=== PATIENT | female | born 1950 | race Caucasian/White ===

== ENCOUNTER 2017-11-11 06:08 | Outpatient (CLI) | payer MEDICARE, OTHER ==
[~2017-11-11] VITALS: Ht 162.6 cm; Wt 113.4 kg
[~2017-11-11 06:08] MED LIST: ASPI-999 PO; ATOR10TA PO; LEVO150T6 PO
[2017-11-11] MEDS ORDERED: ATOR20TA66 PO (15:51)
== END 2017-11-11 16:20 ==
LOC: PREOP 06:08
PROVIDERS: ATTEND Surgery
DX: Z01.818 Encounter for other preprocedural examination (principal); Z12.11 Encounter for screening for malignant neoplasm of colon

== ENCOUNTER 2017-11-17 11:11 | Day surgery (SDC) | payer MEDICARE, OTHER ==
[~2017-11-17] VITALS: Ht 162.6 cm; Wt 113.4 kg
[~2017-11-17 11:11] MED LIST changes: +ATOR20TA66 PO
--- OUTSIDE RECORDS SUMMARY | 2017-11-17 11:14 | XMS REPORT | Continuity of Care Document ---
Author Author [facility] Organization [facility] Address Unknown Phone Unavailable Allergies Active Description Code Type Severity Reaction Onset Reported/Identified Relationship to Patient Clinical Status Yes No Known Drug Allergies [id number] Drug Allergy Unknown N/A 11/29/2015 Medications There is no data. Problems Date Dx Coded Attending Type Code Diagnosis Diagnosed By 11/21/2015 JO-ANN MARTÍNEZ MD Ot E03.9 11/21/2015 JO-ANN MARTÍNEZ MD Ot E78.2 11/21/2015 JO-ANN MARTÍNEZ MD Ot I10 11/21/2015 JO-ANN MARTÍNEZ MD Ot R06.02 11/21/2015 JO-ANN MARTÍNEZ MD Ot R07.89 11/23/2015 JO-ANN MARTÍNEZ MD Ot E03.9 11/23/2015 JO-ANN MARTÍNEZ MD Ot E78.2 11/23/2015 JO-ANN MARTÍNEZ MD Ot I10 11/23/2015 JO-ANN MARTÍNEZ MD Ot R06.02 11/23/2015 JO-ANN MARTÍNEZ MD Ot R07.89 11/29/2015 JO-ANN MARTÍNEZ MD Ot E03.9 11/29/2015 JO-ANN MARTÍNEZ MD Ot E78.2 11/29/2015 JO-ANN MARTÍNEZ MD Ot I10 11/29/2015 JO-ANN MARTÍNEZ MD Ot R06.02 11/29/2015 JO-ANN MARTÍNEZ MD Ot R07.89 11/29/2015 JO-ANN MARTÍNEZ MD Ot E03.9 11/29/2015 JO-ANN MARTÍNEZ MD Ot E78.2 11/29/2015 JO-ANN MARTÍNEZ MD Ot I10 11/29/2015 JO-ANN MARTÍNEZ MD Ot R06.02 11/29/2015 JO-ANN MARTÍNEZ MD Ot R07.89 11/30/2015 JO-ANN MARTÍNEZ MD Ot E03.9 11/30/2015 JO-ANN MARTÍNEZ MD Ot E78.2 11/30/2015 JO-ANN MARTÍNEZ MD Ot I10 11/30/2015 JO-ANN MARTÍNEZ MD Ot R06.02 11/30/2015 JO-ANN MARTÍNEZ MD Ot R07.89 11/30/2015 JO-ANN MARTÍNEZ MD Ot E03.9 11/30/2015 JO-ANN MARTÍNEZ MD Ot E78.2 11/30/2015 JO-ANN MARTÍNEZ MD Ot I10 11/30/2015 JO-ANN MARTÍNEZ MD Ot R06.02 11/30/2015 JO-ANN MARTÍNEZ MD Ot R07.89 12/04/2015 JO-ANN MARTÍNEZ MD Ot E03.9 HYPOTHYROIDISM, UNSPECIFIED 12/04/2015 JO-ANN MARTÍNEZ MD Ot E78.2 MIXED HYPERLIPIDEMIA 12/04/2015 JO-ANN MARTÍNEZ MD Ot I10 ESSENTIAL (PRIMARY) HYPERTENSION 12/04/2015 JO-ANN MARTÍNEZ MD Ot R06.02 SHORTNESS OF BREATH 12/04/2015 JO-ANN MARTÍNEZ MD Ot R07.89 OTHER CHEST PAIN 12/06/2015 JO-ANN MARTÍNEZ MD Ot E03.9 HYPOTHYROIDISM, UNSPECIFIED 12/06/2015 JO-ANN MARTÍNEZ MD Ot E78.5 HYPERLIPIDEMIA, UNSPECIFIED 12/06/2015 JO-ANN MARTÍNEZ MD Ot I10 ESSENTIAL (PRIMARY) HYPERTENSION 12/06/2015 JO-ANN MARTÍNEZ MD Ot I25.10 ATHSCL HEART DISEASE OF [place] CORONARY 12/06/2015 JO-ANN MARTÍNEZ MD Ot R06.02 SHORTNESS OF BREATH 12/06/2015 JO-ANN MARTÍNEZ MD Ot R07.9 CHEST PAIN, UNSPECIFIED 12/06/2015 JO-ANN MARTÍNZE MD Ot R94.39 ABNORMAL RESULT OF OTHER CARDIOVASCULAR 12/06/2015 JO-ANN MARTÍNEZ MD Ot Z79.899 OTHER DETENTION (CURRENT) DRUG THERAPY 12/06/2015 JO-ANN MARTÍNEZ MD Ot Z82.49 FAMILY HX OF I[place]HE[place] HEART DIS AND OTH DI 12/15/2015 JO-ANN MARTÍNEZ MD Ot E03.9 HYPOTHYROIDISM, UNSPECIFIED 12/15/2015 JO-ANN MARTÍNEZ MD Ot E78.2 MIXED HYPERLIPIDEMIA 12/15/2015 JO-ANN MARTÍNEZ MD Ot I10 ESSENTIAL (PRIMARY) HYPERTENSION 12/15/2015 JO-ANN MARTÍNEZ MD Ot R06.02 SHORTNESS OF BREATH 12/15/2015 JO-ANN MARTÍNEZ MD Ot R07.89 OTHER CHEST PAIN 12/20/2015 JO-ANN MARTÍNEZ MD Ot E03.9 HYPOTHYROIDISM, UNSPECIFIED 12/20/2015 JO-ANN MARTÍNEZ MD Ot E78.2 MIXED HYPERLIPIDEMIA 12/20/2015 JO-ANN MARTÍNEZ MD Ot I10 ESSENTIAL (PRIMARY) HYPERTENSION 12/20/2015 JO-ANN MARTÍNEZ MD Ot R06.02 SHORTNESS OF BREATH 12/20/2015 JO-ANN MARTÍNEZ MD Ot R07.89 OTHER CHEST PAIN Procedures There is no data. Results There is no data. Encounters ACCT No. Visit Date/Time Discharge Status Pt. Type Provider Facility Loc./Unit Complaint [id number] 11/11/2017 06:08:00 11/11/2017 23:59:59 CLS Outpatient CONSTANTINE BANDA MD [facility] PREOP COLONOSCOPY [id number] 12/06/2015 11:18:00 12/06/2015 19:50:00 DIS Outpatient JO-ANN MARTÍNEZ MD [facility] CATH [id number] 11/29/2015 11:43:00 11/29/2015 23:59:59 CLS Outpatient JO-ANN MARTÍNEZ MD [facility] CARD [id number] 11/20/2015 13:36:00 11/20/2015 23:59:59 CLS Outpatient JO-ANN MARTÍNEZ MD [facility] CARD
[2017-11-17] MEDS ORDERED: NS IV 500 ML 500 ML IV PRN (12:05)
[2017-11-17] MEDS ORDERED: NS IV 500 ML 500 ML ONE (12:11)
[2017-11-17 12:25] VITALS: BP 172/99
[2017-11-17] MEDS ORDERED: fentaNYL INJECTION 100 MCG/2 ML AMP ONE (13:32)
[2017-11-17] MEDS ORDERED: MIDAZOLAM 2 MG/2 ML (VERSED) VIAL ONE ×3 (13:32)
[2017-11-17] MEDS: fentaNYL INJECTION 100 MCG/2 ML AMP IVP PRN ×2 (13:43→13:53)
[2017-11-17] MEDS: MIDAZOLAM 2 MG/2 ML (VERSED) VIAL IVP PRN ×3 (13:45→13:55)
--- NOTE | 2017-11-17 13:50 | History & Physicial ---
History of Present Illness History of Present Illness Reason for visit/HPI to undergo screening colonoscopy. Denies any 11 family history. Date of Admission 11/17/17 Date Seen by Provider: Nov 17, 2017 Time Seen by Provider: 12:20 I consulted on this patient on 11/17/17 13:48 Attending Physician Constantine Banda MD Admitting Physician Nicik Gaming MD Consult Allergies and Home Medications Allergies Coded Allergies: No Known Drug Allergies (Unverified , 11/11/17) Home Medications Aspirin 81 Mg Tab.chew, 81 MG PO DAILY, (Reported) Atorvastatin Calcium 20 Mg Tablet, 20 MG PO DAILY, (Reported) Levothyroxine Sodium 150 Mcg Tablet, 150 MCG PO DAILY, (Reported) Patient Home Medication List Home Medication List Reviewed: Yes Past Oooeokc-Tcajgu-Lmapbi Hx Patient Social History Marrital Status: Employed/Student: retired Alcohol Use: Occasionally Uses Recreational Drug Use: No Smoking Status: Former Smoker Former Smoker, Quit: Nov 11, 1997 Recent Foreign Travel: No Contact w/other who traveled: No Recent Hopitalizations: No Recent Infectious Disease Expo: No Immunizations Up To Date Tetanus Booster (TDap): Unknown Pediatric: No Seasonal Allergies Seasonal Allergies: No Surgeries Yes Gallbladder, Hysterectomy Respiratory No Cardiovascular Yes High Cholesterol Neurological No Reproductive System Hx Reproductive Disorders: No Sexually Transmitted Disease: No HIV/AIDS: No VISITOR SERVICES INFORMATION ASSISTANT History: Hysterectomy Gastrointestinal No Musculoskeletal Yes Endocrine History of Endocrine Disorders: Yes Endocrine Disorders: Hypothyroidsim HEENT Loss of Vision: Bilateral Hearing Impairment: Denies Blood Transfusions Adverse Reaction to a Blood Tr: No Constitutional: no symptoms reported EENTM: no symptoms reported Respiratory: no symptoms reported Cardiovascular: no symptoms reported Gastrointestinal: no symptoms reported Genitourinary: no symptoms reported Musculoskeletal: no symptoms reported Skin: no symptoms reported Psychiatric/Neurological: No Symptoms Reported Physical Exam Vital Signs Vital Signs - First Documented 11/17/17 12:25 Temp 98.6 Pulse 75 Resp 18 B/P (MAP) 172/99 (123) Pulse Ox 95 O2 Delivery Room Air Capillary Refill : General Appearance: No Apparent Distress Neck: Normal Inspection Respiratory: Lungs Clear Cardiovascular: Regular Rate, Rhythm Gastrointestinal: Non Tender, Soft Rectal: Deferred Back: Normal Inspection Extremity: Normal Inspection Neurologic/Psychiatric: Oriented x3 Skin: Warm/Dry Assessment/Plan Assessment and Plan lady here to undergo screening colonoscopy. Discussed in detail. Problems: Admission Diagnosis Admission Status: Other (Outpt Proc) CONSTANTINE BANDA MD Nov 17, 2017 1:50 pm
--- NOTE | 2017-11-17 13:51 | Conscious Sedation/ASA ---
Conscious Sedation Pre-Proced Time Reviewed: 13:51 ASA Class: 2 Airway Mallampati Classification: (north fork appropriate class) I. II. III, IV Lungs Heart ASA score ASA 1: a normal healthy patient ASA 2: a patient with a mild systemic disease (mid diabetes, controlled hypertension, obesity ASA 3: a patient with a severe systemic disease that limits activity (angina , COPD, prior Myocardial infarction) ASA 4: a patient with an incapacitating disease that is a constant threat to life (CHF, renal failure) ASA 5: a moribund patient not expected to survive 24 hrs. (ruptured aneurysm) ASA 6: a declared brain patient whose organs are being harvested. For emergent operations, add the letter E after the classification Grade 1 Sedation Plan: Discussed options with patient/fam Note The patient is an appropriate candidate to undergo the planned procedure, sedation, and anesthesia. The patient immediately re-assessed prior to indication. CONSTANTINE BANDA MD Nov 17, 2017 1:51 pm
--- NOTE | 2017-11-17 14:10 | Endo Procedure Record ---
Endo Procedure Report Date of Procedure Last Colonoscopy: No Nov 17, 2017 Surgeon (s) CONSTANTINE BANDA MD Post Procedure/Op Diagnosis Sigmoid diverticulosis Procedure Performed Colonoscopy to cecum Description of Procedure Anesthesia Type: Conscious Sedation Specimen(s) collected/removed none Description of the Procedure Indication for the procedure: This lady came in for screening colonoscopy. She denied any family history of colon cancer or polyps. Informed consent was obtained after reviewing the procedure in detail. Description of the procedure: She was placed in left lateral decubitus position and her vital signs were monitored. Conscious sedation was achieved using Versed and fentanyl. Digital rectal examination was unremarkable. The colonoscope was then introduced in the rectum and advanced all the way up to the cecum. The scope was then withdrawn slowly and the mucosa examined in a systematic fashion. Finding: Quite severe sigmoid diverticulosis very minimal inflammation. No polyps were found She tolerated the procedure well and was taken back to the nursing area in a stable condition. Impression: Screening colonoscopy. No polyps. Incidental, severe sigmoid diverticulosis. CONSTANTINE BANDA MD Nov 17, 2017 2:09 pm
--- NOTE | 2017-11-17 14:11 | Discharge Inst-Simple/Standard ---
Discharge Inst-Standard Discharge Medications New, Converted or Re-Newed RX: Other Patient Instructions/Follow Up Plan of Care/Instructions/FU: High fiber diet information Activity as Tolerated: Yes Discharge Diet: No Restrictions CONSTANTINE BANDA MD Nov 17, 2017 2:11 pm
[2017-11-17 14:15] VITALS: BP 137/83
[2017-11-17 14:45] VITALS: BP 138/69
== END 2017-11-17 15:10 | disposition home or self-care (01) ==
LOC: ENDO 11:11
PROVIDERS: ATTEND Surgery
DX: Z12.11 Encounter for screening for malignant neoplasm of colon (principal); K57.30 Diverticulosis of large intestine without perforation or abscess without bleeding; E78.00 Pure hypercholesterolemia, unspecified; Z87.891 Personal history of nicotine dependence

== ENCOUNTER → 2020-09-21 | Outpatient (CLI) | payer MEDICARE, OTHER | LOC: CARD 10:45 | PROVIDERS: ATTEND Physician Assistant | DX: I10 Essential (primary) hypertension (principal); I35.0 Nonrheumatic aortic (valve) stenosis | CPT/HCPCS: 93306 ==

== ENCOUNTER → 2020-10-02 | Outpatient (CLI) | payer MEDICARE, OTHER ==
[~2020-10-02] VITALS: Ht 160 cm; Wt 100.0 kg
[~2020-10-02] MED LIST changes: +REGADENOSON 0.4 MG/5 ML SYR (LEXISCAN) IV ONE
[2020-10-02] MEDS: CATHETER FLUSH 10 ML SYR IV PRN ×2 (07:39→09:04)
[2020-10-02 09:03] VITALS: BP 118/72
--- NOTE | 2020-10-04 10:59 | Cardiology Stress Test Report ---
Stress Test Report Date of Procedure/Referring: Date of Procedure: Oct 02, 2020 Nina Albrecht Admitting Physician Nicki Gaming MD Indications: Hypertension Baseline Heart Rate: 74 Baseline Blood Pressure: Blood Pressure Systolic: 118 Blood Pressure Diastolic: 72 Baseline Vitals Vital Signs Date Time Temp Pulse Resp B/P (MAP) Pulse Ox O2 Delivery O2 Flow Rate FiO2 10/02/20 09:03 96 16 118/72 (87) 98 Room Air Baseline EKG: Baseline EKG: normal sinus rhythm Summary After explaining the procedure to the patient, she signed a consent and then brought to the stress nuclear laboratory. Patient received 0.4 mg Lexiscan for stress test, ECG, heart rate and blood pressure were monitored continuously. Resting and stress dose of radio tracer were injected, imaging was acquired and reviewed in short axis, horizontal long axis and vertical long axis views. TID: 1.08 SSS: 9 SDS: 7 EF: 67 1. Patient tolerated Lexiscan well 2. Breast attenuation with reversible ischemia involving the whole anterior wall 3. Normal left ventricular size, EF 67 percent JO-ANN MARTÍNEZ MD Oct 04, 2020 10:59
== END ==
LOC: CARD 08:15
PROVIDERS: ATTEND Physician Assistant
DX: I10 Essential (primary) hypertension (principal)
CPT/HCPCS: 78452; 93017; A9502

== ENCOUNTER 2020-10-11 10:00 | Day surgery (SDC) | payer MEDICARE, OTHER ==
[~2020-10-11] VITALS: Ht 162 cm; Wt 100.0 kg
[2020-10-11] VITALS (11 sets, daily range): BP systolic 104–170; BP diastolic 63–97
[2020-10-11 08:27] LABS: BILIRUBIN,URINE NEGATIVE (NEGATIVE); CLARITY,URINE CLEAR; COLOR,URINE YELLOW; GLUCOSE, URINE (UA) NEGATIVE (NEGATIVE); KETONES,URINE NEGATIVE (NEGATIVE); LEUKOCYTE ESTERASE ,URINE TRACE (NEGATIVE); NITRITE,URINE NEGATIVE (NEGATIVE); PH,URINE 5.5 (5-9); PROTEIN,URINE NEGATIVE (NEGATIVE)
[2020-10-11 08:29] LABS: HEMOGLOBIN 14.6 g/dL (11.5-16.0); MEAN PLATELET VOLUME 9.8 fL (9.0-12.2); WHITE BLOOD COUNT 6.4 10^3/uL (4.3-11.0)
--- NOTE | 2020-10-11 08:31 | Diagnostic Imaging Report ---
EXAMINATION: Chest, 1 view. HISTORY: Chest pain. Abnormal stress test. COMPARISON: 12/06/2015. FINDINGS: The lung volumes are normal. No focal consolidation is seen. No large pleural effusion or pneumothorax is seen. The cardiomediastinal silhouette is prominent. No acute osseous abnormality is seen. IMPRESSION: Cardiomegaly. No overt pulmonary edema. Dictated by: Dictated on workstation # [id number]
[2020-10-11 08:36] LABS: BACTERIA,URINE FEW /HPF
[2020-10-11 08:39] LABS: ALBUMIN 4.2 GM/DL (3.2-4.5); CHLORIDE 107 MMOL/L (98-107); INR 0.9 (0.8-1.4); POTASSIUM 3.9 MMOL/L (3.6-5.0); PROTHROMBIN TIME PATIENT 12.3 SEC (12.2-14.7); SODIUM 142 MMOL/L (135-145)
[2020-10-11 08:40] LABS: CALCIUM 9.2 MG/DL (8.5-10.1)
[2020-10-11 08:41] LABS: GLUCOSE 102 MG/DL (70-105); TOTAL PROTEIN 7.6 GM/DL (6.4-8.2); TRIGLYCERIDES 136 MG/DL (<150); VLDL CHOLESTEROL 27 MG/DL (5-40)
[2020-10-11 08:42] LABS: CARBON DIOXIDE 24 MMOL/L (21-32)
[2020-10-11 08:43] LABS: BILIRUBIN,TOTAL 0.7 MG/DL (0.1-1.0)
[2020-10-11 08:45] LABS: ALKALINE PHOSPHATASE 95 U/L (40-136); CREATININE SERUM 0.79 MG/DL (0.60-1.30); GFR ESTIMATED > 60
[2020-10-11 08:46] LABS: BUN/CREATININE RATIO 16; CHOLESTEROL 187 MG/DL (< 200)
[2020-10-11 08:47] LABS: HDL CHOLESTEROL 69 MG/DL (40-60)
[2020-10-11 08:48] LABS: ALANINE AMINOTRANSFERASE 24 U/L (0-55)
--- NOTE | 2020-10-11 09:30 | Cardiac Procedure Note-CS/ASA ---
Pre-Procedure Note Pre-Op Procedure Note H&P Reviewed The H&P was reviewed, patient examined and no changes noted. Date H&P Reviewed: Oct 11, 2020 Time H&P Reviewed: 09:30 Conscious Sedation Pre-Proced Time 09:30 ASA Score 3 For ASA 3 and 4: Consider anesthesia and medical clearance. Also, for patients with a history of failed moderate sedation consider anesthesia. Airway Lungs Heart ASA score ASA 1: a normal healthy patient ASA 2: a patient with a mild systemic disease (mid diabetes, controlled hypertension, obesity x ASA 3: a patient with a severe systemic disease that limits activity (angina, COPD, prior Myocardial infarction) ASA 4: a patient with an incapacitating disease that is a constant threat to life (CHF, renal failure) ASA 5: a moribund patient not expected to survive 24 hrs. (ruptured aneurysm) ASA 6: a declared brain- patient whose organs are being harvested. For emergent operations, add the letter E after the classification Mallampati Classification Grade 3 Sedation Plan Analgesia, Amnesia, Plan communicated to team members, Discussed options with patient/fam, Discussed risks with patient/fam The patient is an appropriate candidate to undergo the planned procedure, sedation, and anesthesia. The patient immediately re-assessed prior to indication. JO-ANN MARTÍNEZ MD Oct 11, 2020 09:30
[~2020-10-11 10:00] MED LIST changes: +ASPI-1238 PO; +ATOR80TA76 PO; +HEParin (CATH LAB) 2,000 ML IV ONE; +HEParin 1000 UNIT/ML (10ML VIAL) FOR BOLUS ONE; +LEVO125C4 PO; +LEVO125T6 PO; +LIDOCAINE 1% INJ 20 ML 20 ML VIAL ONE; +MIDAZOLAM 5 MG/5 ML (VERSED) VIAL ONE; +NITRO DRIP 25000 MCG/D5W 250 ML IV ONE; +NS IV 1000 ML 1,000 ML IV SCH; +NS IV 1000 ML 1,000 ML ONE; -REGADENOSON 0.4 MG/5 ML SYR (LEXISCAN) IV ONE; +VERAPAMIL 5 MG/2 ML (CALAN) VIAL IV ONE; +fentaNYL INJECTION 100 MCG/2 ML AMP ONE
--- NOTE | 2020-10-11 10:19 | Discharge Inst-Post CATH ---
Discharge Inst-CATH/EP Problems Reviewed?: Yes Post Cardiac Cath/EP D/C Inst Follow Up/Plan Appointment with Dr. MARTÍNEZ's office in 4 weeks <b>CARDIAC CATH/EP PROCEDURE DISCHARGE INSTRUCTIONS</b> ACTIVITY * Go Home directly and rest. * Limit activity of the leg (or wrist if it was used) for 7 days including aerobics, swimming, jogging, bicycling, etc. * Restrict stair-climbing for 7 days if possible, if not, climb up with your non-cath leg, then bring together on the same step. * Avoid lifting, pushing, pulling or excessive movement of the affected extremity for 7 days. * Customary sexual activity may be resumed after 2 days-use caution not to use a position that strains or causes pain to the affected extremity. * No driving for 24 hours. * NO SMOKING. * Avoid straining for bowel movements for 7 days. * Gentle walking on level ground is allowed. * Returning to work will depend on the type of procedure and the results. Your doctor will discuss this with you. CALL YOUR DOCTOR FOR ANY OF THE FOLLOWING: *If bleeding from the puncture site occurs- Apply gentle pressure to site with clean cloth and call your doctor or EMS. * If a knot or lump forms under the skin, increases in size, or causes pain. * If bruising appears to be worsening or moving further down your leg instead of disappearing. * Temperature above 101 F. CARE OF YOUR GROIN INCISION; * Bruising or purple discoloration of the skin near the puncture site is common. * You may shower only, no bathtub bathing for 5 days. Be careful to avoid slipping as your leg may feel stiff. * If a closure device was used on your femoral artery, please see the attached guide regarding care of the device and your leg. * Leave dressing on FOR 24 hours. CARE OF YOUR WRIST INCISION; * Bruising or purple discoloration of the skin near the puncture site is common. * You may shower. * DO NOT submerge wrist. * Leave dressing on FOR 24 hours. JO-ANN MARTÍNEZ MD Oct 11, 2020 10:19 am
--- NOTE | 2020-10-11 10:21 | Cardiac Cath Report ---
Cardiac Cath Report Physician (s)/Caddie Supervisor (s) Physician JO-ANN MARTÍNEZ MD Pre-Procedure Diagnosis Pre-Procedure Diagnosis: coronary artery disease Post-Procedure Note Procedure Start Date: Oct 11, 2020 Name of Procedure: Left heart catheterization Findings/Procedure Note PROCEDURE NOTE: 69-year-old lady with history of hypertension, hypothyroidism, has been having chest pain, had an abnormal stress test with reversible ischemia involving the anterior wall. Scheduled for cardiac catheterization. After explaining the procedure to the patient, all pros and cons were explained, all questions were answered. The patient signed the consent and then she was placed on the cardiac catheterization laboratory. Groin was prepped SL fashion local anesthesia was used. Sheath placed in the right radial artery, Hazel catheter was advanced to the left ventricular cavity, pressure was measured, pullback LV to aorta was done, intubated the left coronary system and angiogram was done then turned to the right coronary system and angiogram was done. At the end of the procedure the sheath was removed. Vascular band was used FINDINGS: Hemodynamics LV 105/8, end-diastolic pressure of 8 Aorta 104/63 mean of 79 ANATOMY: Left Main is free of obstructive disease Left Anterior Descending is slightly tortuous with no obstructive disease Left Circumflex is free of obstructive disease Right Coronory Artery has mild disease tortuous artery dominant artery nonobstructive disease LV Gram was not done, pressure was measured CONCLUSION: 1. Mild coronary artery disease nonobstructive disease 2. Normal left ventricular end-diastolic pressure DISCUSSION AND RECOMMENDATION: Medical therapy is recommended no intervention is warranted Anesthesia Type: Conscious Sedation Estimated blood loss (mL): 10 ml Contrast Amount: 31 ml Total Radiation Dose: 411 mGy Post-Procedure Diagnosis Post-operative diagnosis: Coronary artery disease Hypertension Hypothyroidism Chest pain JO-ANN MARTÍNEZ MD Oct 11, 2020 10:21 am
[2020-10-11] MEDS ORDERED: NS IV 1000 ML 1,000 ML IV SCH (10:30)
== END 2020-10-11 13:40 | disposition home or self-care (01) ==
LOC: SDC 10:31 → CATH 13:40
PROVIDERS: ATTEND Internal Medicine Cardiovascular Disease
DX: I25.10 Atherosclerotic heart disease of native coronary artery without angina pectoris (principal); I10 Essential (primary) hypertension; E03.9 Hypothyroidism, unspecified; E78.2 Mixed hyperlipidemia; I65.23 Occlusion and stenosis of bilateral carotid arteries; Z79.82 Long term (current) use of aspirin; Z87.891 Personal history of nicotine dependence
CPT/HCPCS: 71045; 80053; 80061; 81000; 85027; 85610; 85730; 87081; 93458; C1894; 36415

== ENCOUNTER → 2022-06-29 | Outpatient (CLI) | payer MEDICARE, OTHER ==
[~2022-06-29] MED LIST changes: -HEParin (CATH LAB) 2,000 ML IV ONE; -HEParin 1000 UNIT/ML (10ML VIAL) FOR BOLUS ONE; -LIDOCAINE 1% INJ 20 ML 20 ML VIAL ONE; -MIDAZOLAM 5 MG/5 ML (VERSED) VIAL ONE; -NITRO DRIP 25000 MCG/D5W 250 ML IV ONE; -NS IV 1000 ML 1,000 ML IV SCH; -NS IV 1000 ML 1,000 ML ONE; -VERAPAMIL 5 MG/2 ML (CALAN) VIAL IV ONE; -fentaNYL INJECTION 100 MCG/2 ML AMP ONE
--- NOTE | 2022-06-29 15:26 | Diagnostic Imaging Report ---
INDICATION: Pain and swelling. COMPARISON: None available. TECHNIQUE: Two radiographs of the left calcaneus dated June 29, 2022. FINDINGS: Mild fragmentation and irregularity involving the posterior calcaneus at the region of posterior calcaneal enthesophytes. This is at the insertion of the Achilles tendon. Calcifications at this location appear well-corticated. However, this is associated with mild overlying soft tissue swelling. Small plantar calcaneal enthesophyte is also identified. No discrete acute fracture. No dislocation. No tarsal coalition. No suspicious radiopaque foreign body. IMPRESSION: Soft tissue swelling at the location of the Achilles tendon insertion site with associated irregularity and fragmentation of the posterior calcaneus at this location. Given appearance, this is felt to relate to acute on chronic calcific tendinitis. Recent avulsion fracture of the calcaneal enthesophyte felt unlikely given well-corticated appearance. Small plantar calcaneal enthesophyte. Dictated by: Dictated on workstation # [id number]
== END ==
LOC: RAD FS 12:44
PROVIDERS: ATTEND Nurse Practitioner Family
DX: M79.672 Pain in left foot (principal); R22.42 Localized swelling, mass and lump, left lower limb
CPT/HCPCS: 73650

== ENCOUNTER → 2022-07-17 | Outpatient (RCR) | payer MEDICARE, OTHER | END | disposition home or self-care (01) | LOC: ONC 07-01 09:50 | PROVIDERS: ATTEND Radiology Radiation Oncology | DX: Z51.0 Encounter for antineoplastic radiation therapy (principal); C50.411 Malignant neoplasm of upper-outer quadrant of right female breast; C77.3 Secondary and unspecified malignant neoplasm of axilla and upper limb lymph nodes | CPT/HCPCS: 77280; 77290; 77295; 77300; 77334; 77417; 77470; 99205 ==

== ENCOUNTER 2022-08-16 09:39 | Outpatient (RCR) | payer MEDICARE, OTHER | END 2022-08-17 | disposition home or self-care (01) | LOC: ONC 09:39 | PROVIDERS: ATTEND Radiology Radiation Oncology | DX: Z51.0 Encounter for antineoplastic radiation therapy (principal); I25.10 Atherosclerotic heart disease of native coronary artery without angina pectoris; I10 Essential (primary) hypertension; E78.2 Mixed hyperlipidemia | CPT/HCPCS: 77336; 77417 ==

== ENCOUNTER 2022-08-28 09:09 | Outpatient (RCR) | payer MEDICARE, OTHER | END 2022-09-03 11:27 | disposition home or self-care (01) | LOC: ONC 09:09 | PROVIDERS: ATTEND Radiology Radiation Oncology | DX: Z51.0 Encounter for antineoplastic radiation therapy (principal); I25.10 Atherosclerotic heart disease of native coronary artery without angina pectoris; I10 Essential (primary) hypertension; E78.2 Mixed hyperlipidemia; E03.9 Hypothyroidism, unspecified | CPT/HCPCS: 77307; 77334; 77412; G0463; 77336; 77417 ==

== ENCOUNTER 2022-10-03 10:00 | Outpatient (RCR) | payer MEDICARE, OTHER | END 2022-10-15 | disposition home or self-care (01) | LOC: ONC 10:00 | PROVIDERS: ATTEND Radiology Radiation Oncology | DX: I65.29 Occlusion and stenosis of unspecified carotid artery (principal); I10 Essential (primary) hypertension; E78.2 Mixed hyperlipidemia; E03.9 Hypothyroidism, unspecified | CPT/HCPCS: 99213 ==

== ENCOUNTER → 2022-12-12 | Outpatient (CLI) | payer MEDICARE, OTHER | LOC: CARD 12:28 | PROVIDERS: ATTEND Physician Assistant | DX: I11.9 Hypertensive heart disease without heart failure (principal) | CPT/HCPCS: 93306 ==